=== PATIENT | female | born 1980 | race African-American/Black ===

== ENCOUNTER 2021-07-12 06:49 | Emergency (ER) | payer MEDICAID, OTHER ==
[~2021-07-12] VITALS: Ht 170.2 cm; Wt 72.6 kg
[2021-07-12] MEDS ORDERED: IBUPROFEN 600 MG TAB PO ONE (10:45)
[2021-07-12 11:24] VITALS: BP 128/89
[2021-07-12] MEDS ORDERED: TRAM50TA2 PO (13:28)
[2021-07-12] MEDS ORDERED: NAP500T PO (13:28)
== END 2021-07-12 13:40 | disposition home or self-care (01) ==
LOC: ER 06:49
DX: S52.501A Unspecified fracture of the lower end of right radius, initial encounter for closed fracture (principal); W01.0XXA Fall on same level from slipping, tripping and stumbling without subsequent striking against object, initial encounter; Y93.89 Activity, other specified; Y92.89 Other specified places as the place of occurrence of the external cause; Y99.8 Other external cause status
CPT/HCPCS: 29125; 73110

== ENCOUNTER 2021-09-11 05:52 | Emergency (ER) | payer SELFPAY ==
[~2021-09-11] VITALS: Ht 170.2 cm; Wt 82.2 kg
[~2021-09-11 05:52] MED LIST: NAP500T PO; TRAM50TA2 PO
[2021-09-11 07:28] VITALS: BP 113/74
== END 2021-09-11 08:19 | disposition home or self-care (01) ==
LOC: ER 05:52
DX: S60.211A Contusion of right wrist, initial encounter (principal); S60.221A Contusion of right hand, initial encounter; X58.XXXA Exposure to other specified factors, initial encounter; Y93.89 Activity, other specified; Y92.89 Other specified places as the place of occurrence of the external cause; Y99.8 Other external cause status
CPT/HCPCS: 73110

== ENCOUNTER 2022-08-20 05:36 | Emergency (ER) | payer SELFPAY ==
[~2022-08-20] VITALS: Ht 170.2 cm; Wt 65.0 kg
[2022-08-20 06:50] LABS: Urine Bacteria MANY /hpf (None Seen); Urine Blood 2+ /uL (Negative); Urine Budding Yeast FEW /hpf (None Seen); Urine Specific Gravity 1.012 (1.001-1.035); Urine WBC 51 /hpf (0 - 5)
[2022-08-20 07:00] VITALS: BP 144/92
[2022-08-20] MEDS ORDERED: NITR-87 PO (07:59)
== END 2022-08-20 08:08 | disposition home or self-care (01) ==
LOC: ER 05:36
DX: N39.0 Urinary tract infection, site not specified (principal); R31.9 Hematuria, unspecified; Z79.899 Other long term (current) drug therapy
CPT/HCPCS: 81001

== ENCOUNTER 2024-11-25 15:43 | Emergency (ER) | payer MEDICAID ==
[~2024-11-25] VITALS: Ht 170.2 cm; Wt 84.1 kg
[~2024-11-25 15:43] MED LIST changes: +NITR-87 PO
--- NOTE | 2024-11-25 16:16 | ED.PDOC ---
Musculoskeletal HPI Comments A 44 YEAR OLD FEMALE PRESENTS TO THE ED WITH COMPLAINT OF HAND/JAW PAIN S/P FALL. PATIENT REPORTS THAT SHE HAD TRIPPED AND FELL ON SATURDAY, INJURING HER RIGHT HAND AND JAW. PATIENT RELAYS THAT SHE HAS HAD PAIN AND SWELL SINCE THEN, BEING UNABLE TO MOVE HER RIGHT HAND OR EAT PROPERLY DUE TO THE PAIN. PATIENT DENIES HEAD INJURY, LOC, DIZZINESS, CHEST PAIN, ABDOMINAL PAIN, NAUSEA, VOMITING, HEADACHE, OR OTHER COMPLAINTS. NO OTHER SYMPTOMS OR MODIFYING FACTORS AT THIS TIME. PATIENT IS ALERT, ORIENTED X 4, AND HAS STEADY GAIT. Chief Complaint: Fall Injury Time Seen by MD: 16:14 Primary Care Provider: NONE Reviewed Notes: Nurses Notes, Medications, Allergies Allergies: Coded Allergies: No Known Drug Allergy (Verified Allergy, Unknown, 07/12/21) Home Meds Active Scripts Cephalexin Monohydrate (Cephalexin) 500 Mg Cap, 1 CAP PO QID, #28 CAP Prov:RACHAEL AVERY 11/25/24 Ibuprofen (Ibuprofen) 800 Mg Tab, 1 TAB PO TID, #30 TAB Prov:RACHAEL AVERY 11/25/24 Nitrofurantoin Monohydrate Mac (Macrobid) 100 Mg Cap, 100 MG PO BID for 5 Days, #10 CAP 0 Refills Prov:BRAYAN CHEN NP 08/20/22 Tramadol Hcl (Tramadol Hcl) 50 Mg Tab, 50 MG PO TID for 5 Days, #15 TAB Prov:SABINA MCALLISTER MD 07/12/21 Naproxen (NAPROSYN TABLET) 500 Mg Tb, 1 TAB PO BID for 10 Days, #20 TAB 1 Refill Prov:SABINA MCALLISTER MD 07/12/21 Information Source: Patient Mode of Arrival: Ambulatory Location: Right Extremity Location: Hand, Other (JAW) Timing: Days Prehospital treatment: None Severity: Moderate Able to Move Extremity: Yes Bear Weight: Fully Pain: Moderate Hand Dominance: Right Mechanism: Other Circumstances: Fall Onset of Symptoms: After Trauma Symptoms: Swelling, Pain DVT Risk Factors: NONE Last Tetanus: UTD, Unknown Associated signs and symptoms: Other (CHIN PAIN ) Past Medical History PAST MEDICAL HISTORY: Denies Surgical History: Denies all surgeries [employer] 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[employer]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 [employer]ANT History Family History Family History: Reviewed,noncontributory to illness Social History Smoker: Non-Smoker Alcohol: Denies ETOH Use Drugs: Denies Drug Use Lives In: Home Constitutional: denies: chills, diaphoresis, fatigue, fever, malaise, sweats, weakness, others EENTM: denies: blurred vision, double vision, ear bleeding, ear discharge, ear drainage, ear pain, ear ringing, eye pain, eye redness, hearing loss, mouth pain, mouth swelling, nasal discharge, nose bleeding, nose congestion, nose pain, photophobia, tearing, throat pain, throat swelling, voice changes, others Respiratory: denies: cough, hemoptysis, orthopnea, SOB at rest, shortness of breath, SOB with excertion, stridor, wheezing, others Cardiovascular: denies: chest pain, dizzy spells, diaphoresis, Dyspnea on exertion, edema, irregular heart beat, left arm pain, lightheadedness, palpitations, PND, syncope, others Gastrointestinal: denies: abdomen distended, abdominal pain, blood streaked bowels, constipated, diarrhea, dysphagia, difficulty swallowing, hematemesis, melena, nausea, poor appetite, poor fluid intake, rectal bleeding, rectal pain, vomiting, others Genitourinary: denies: abnormal vagina bleeding, burning, dyspareunia, dysuria, flank pain, frequency, hematuria, incontinence, pain, , vagina disc harge, urgency, others Neurological: denies: dizziness, fainting, headache, left sided numbness, left sided weakness, numbness, paresthesia, pre-existing deficit, right sided numbness, right sided weakness, seizure, speech problems, tingling, tremors, weakness, others Musculoskeletal: reports: joint pain, joint swelling, others (RT HAND PAIN, JAW PAIN); denies: back pain, gout, muscle pain, muscle stiffness, neck pain Integumetry: denies: bruises, change in color, change in hair/nails, dryness, laceration, lesions, lumps, rash, wounds, others Allergic/Immunocompromised: denies: Difficulty Healing, Frequent Infections, Hives, Itching, others Hematologic/Lymphatic: denies: anemia, blood clots, easy bleeding, easy br uising, swollen glands, others Endocrine: denies: excessive hunger, excessive sweating, excessive thirst, excessive urination, flushing, intolerance to cold, intolerance to heat, unexplained weight gain, unexplained weight loss, others Psychiatric: denies: anxiety, bipolar disorder, depression, hopeless, panic disorder, schizophrenia, sleepless, suicidal, others All Other Systems: Reviewed and Negative Physical Exam General Appearance: No Apparent Distress, Normal HEENT: Normal ENT Inspection, PERRL/EOMI, Pharynx Normal, TMs Normal, Other (TENDERNESS ON THE CHIN WITH CONTUSION AND ABRASION, NO BONY TENDERNESS AND DEFORMITY. ) Neck: Full Range of Motion, Non-Tender, Normal, Normal Inspection Respiratory: Chest Non-Tender, Lungs Clear, No Accessory Muscle Use, No Respiratory Distress, Normal Breath Sounds Cardiovascular: No Edema, No JVD, No Murmur, No Gallop, Normal Peripheral Pulses, Regular Rate/Rhythm Breast Exam: Deferred Gastrointestinal: No Organomegaly, Non Tender, No Pulsatile Mass, Normal Bowel Sounds, Soft Genitalia: Deferred Pelvic: Deferred Rectal: Deferred Extremities: Decreased range of motion, No calf tenderness, Normal capillary refill, No pedal edema, Swelling (AND TENDERNESS ON RIGHT THUMB, NO DEFORMITY. ), Tender (AND SWELLING ON RIGHT DORSAL HAND, NO DEFORMITY. 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 ), Dry, Normal Color, Warm Peripheral Pulses: 2+ carotid (R), 2+ carotid (L), 2+ Radial (R), 2+ Radial (L) Lymphatic: No Adenopathy Was a procedure done? Was a procedure done?: No Differential Diagnosis EXT Differential Diagnosis: Fracture, Sprain, Contusion, Strain, Bursitis X-Ray, Labs, Meds, VS Vital Signs Date Time Temp Pulse Resp B/P (MAP) Pulse Ox O2 Delivery O2 Flow Rate FiO2 11/25/24 15:45 97.4 105 15 145/[address] [address] Ph: [phone] DIAGNOSTIC IMAGING Diagnostic Imaging Report : [id number] Signed PATIENT: BRAYAN WEBSTER ALANAACCT: [id number] UNIT: [id number] : 1980 LOC: ER ROOM / BED: / AGE / SEX: 44 / F ADM STATUS: REG ER SERVICE ORDERING PHYSICIAN: RACHAEL AVERY PROCEDURE(s): RHAN - R HAND 3 VIEW XRAY REASON: FALL ORDER NUMBER(s): [id number], ACCESSION NUMBER(s): [id number] EXAM: XY R HAND 3 VIEW XRAY HISTORY: FALL COMPARISON: R WRIST COMPLETE XRAY on DOS: 09/11/21 TECHNIQUE: Three views of the right hand were performed. FINDINGS/IMPRESSION: 1. Questionable avulsion fracture at the radial corner of the base of the 1st proximal phalanx. Correlate with point tenderness. ATED BY: FROYLAN HERNANDEZ MD DICTATED DATE/TIME: 11/25/241636 SIGNED BY: FROYLAN HERNANDEZ MD SIGNED DATE/TIME: 11/25/241636 CC: [place] [id number] Ph: [phone] DIAGNOSTIC IMAGING Diagnostic Imaging Report : [id number] Signed PATIENT: BRAYAN WEBSTER ALAJENNIFERACCT: [id number] UNIT: [id number] : 1980 LOC: ER ROOM / BED: / AGE / SEX: 44 / F ADM STATUS: REG ER SERVICE ORDERING PHYSICIAN: RACHAEL AVERY PROCEDURE(s): MANDB - MANDIBLE COMPLETE MIN 4V REASON: CHIN PAIN POST FALL ORDER NUMBER(s): [id number], ACCESSION NUMBER(s): [id number] Indication: CHIN PAIN POST FALL Technique: XY MANDIBLE COMPLETE MIN 4VXY Comparison: None FINDINGS/IMPRESSION: No radiographic evidence for acute fracture or dislocation. No significant soft tissue edema. Dental hardware. CT of the maxillofacial bones can be obtained to further evaluate as clinically indicated. ATED BY: MARY BRICE MD DICTATED DATE/TIME: 11/25/241648 SIGNED BY: MARY BRICE MD SIGNED DATE/TIME: 11/25/241648 CC: X-Ray, Labs, Meds, VS Comment EXTERNAL MEDICAL RECORDS REVIEWED: [NONE] INDEPENDENT HISTORIANS: [NONE] SOCIAL DETERMINANTS OF HEALTH: [NONE] LABS ORDERED: NONE REVIEWED AND INTERPRETED RESULTS: MANDIBLE XR, RT HAND XR IMAGING ORDERED: MANDIBLE XR, RT HAND XR TREATMENTS ORDERED: NORCO 5/325 PO AND THUMB SPICA SPLINT OF RIGHT HAND. PROCEDURES PERFORMED: NONE CRITICAL CARE TIME: NONE I HAVE DISCUSSED THE PATIENT WITH THE ATTENDING PHYSICIAN, DR. CURRIE, HE AGREES WITH THE PATIENT'S PLAN OF CARE AND DISPOSITION. BASED ON HISTORY OF PRESENT ILLNESS, AND PHYSICAL EXAM, PATIENT WILL BE DISCHARGED HOME. DISCUSSED PLAN FOR DISCHARGE HOME WITH RX [MOTRIN AND KEFLEX]. MEDICATION WARNINGS GIVEN. SHARED DECISION MAKING: DISCUSSED WITH PATIENT THAT THEIR WORKUP WAS NORMAL. PATIENT INSTRUCTED TO FOLLOW UP WITH PRIMARY CARE PROVIDER IN 1-2 DAYS FOR RE- EVALUATION OF SYMPTOMS. PATIENT VERBALIZES UNDERSTANDING TO RETURN TO ED FOR NEW OR WORSENING SYMPTOMS OR IF FOLLOW UP WITH PCP CANNOT BE OBTAINED. PATIENT FEELS COMFORTABLE GOING HOME AT THIS TIME. ALL QUESTIONS ADDRESSED AT TIME OF DISCHARGE. Images Reviewed?: Images reviewed and evaluated by me Time of 1ST Reevaluation: 17:30 Reevaluation 1ST: Improved Patient Education/Counseling: Diagnosis, Treatment, Need For Follow Up Family Education/Counseling: Diagnosis, Treatment, No Family Present Medical Screening: No EMC Exist At This Time Departure 1 Departure Time of Disposition: 17:30 Impression: Primary Impression: Closed fracture of base of proximal phalanx of right thumb Additional Impressions: Contusion of hand, right Qualified Codes: S60.221A - Contusion of right hand, initial encounter Abrasion of chin Qualified Codes: S00.81XA - Abrasion of other part of head, initial encounter Disposition: HOME / SELF CARE / HOMELESS Condition: Stable Additional Instructions: FOLLOW-UP WITH PCP IN 1 TO 2 DAYS. TAKE MEDICATIONS PRESCRIBED. RETURN TO ED FOR ANY NEW OR WORSENING SYMPTOMS. e-Prescriptions Cephalexin Monohydrate (Cephalexin) 500 Mg Cap 1 CAP PO QID, #28 CAP Prov: RACHAEL AVERY 11/25/24 Ibuprofen (Ibuprofen) 800 Mg Tab 1 TAB PO TID, #30 TAB Prov: RACHAEL AVERY 11/25/24 Discharged With: Self Critical Care Note Critical Care Time?: No Stability Stability form required: No Heart Score Heart Score: Heart Score Response (Comments) Value History N/A 0 EKG N/A 0 Age N/A 0 Risk Factors N/A 0 Troponin N/A 0 Total 0 I personally scribed for RACHAEL AVERY ([email or web address]) on 11/25/24 at 16:16. Electronically submitted by Buck Lezama ([email or web address]). I personally scribed for RACHAEL AVERY ([email or web address]) on 11/25/24 at 16:44. Electronically submitted by Buck Lezama ([email or web address]). I personally scribed for RACHAEL AVERY ([email or web address]) on 11/25/24 at 17:10. Electronically submitted by Buck Lezama ([email or web address]). RACHAEL AVERY Nov 25, 2024 16:16
--- NOTE | 2024-11-25 16:40 | DVH ---
EXAM: XY R HAND 3 VIEW XRAY HISTORY: FALL COMPARISON: R WRIST COMPLETE XRAY on DOS: 09/11/21 TECHNIQUE: Three views of the right hand were performed. FINDINGS/IMPRESSION: 1. Questionable avulsion fracture at the radial corner of the base of the 1st proximal phalanx. Thea elate with point tenderness.
--- NOTE | 2024-11-25 16:47 | DVH ---
Indication: CHIN PAIN POST FALL Technique: XY MANDIBLE COMPLETE MIN 4VXY Comparison: None FINDINGS/IMPRESSION: No radiographic evidence for acute fracture or dislocation. No significant soft tissue edema. Dental hardware. CT of the maxillofacial bones can be obtained to further evaluate as clinically indicated.
[2024-11-25] MEDS ORDERED: CEPH500C PO (17:09)
[2024-11-25] MEDS ORDERED: IBUP-1456 PO (17:09)
[2024-11-25] MEDS ORDERED: IBUPROFEN 800 MG TAB PO ONE (17:15)
[2024-11-25] MEDS: HYDROcodone-ACET 5/325MG TAB PO ONE (17:16)
[2024-11-25 17:22] VITALS: BP 145/112; PULSE 105; RESP 15; TEMP 97.4; O2SAT 99
== END 2024-11-25 17:25 | disposition home or self-care (01) ==
LOC: ER 15:43
DX: S62.511A Displaced fracture of proximal phalanx of right thumb, initial encounter for closed fracture (principal); S60.221A Contusion of right hand, initial encounter; R68.84 Jaw pain; W01.0XXA Fall on same level from slipping, tripping and stumbling without subsequent striking against object, initial encounter; Y93.89 Activity, other specified; Y92.89 Other specified places as the place of occurrence of the external cause; Y99.8 Other external cause status
CPT/HCPCS: 29125; 70110; 73130